=== PATIENT | female | born 1980 | race Caucasian/White ===

== ENCOUNTER 2021-11-24 22:15 | Emergency (ER) | payer OTHER ==
[~2021-11-24 22:15] MED LIST: ATENOLOL25 MG PO; BUSPIRONE HCL10 MG PO; CITALOPRAM HBR40 MG PO; DOXYCYCLINE MO100 MG PO; FLUCONAZOLE150 MG PO; GABAPENTIN800 MG PO; IBU800 MG PO; LIDOCAINE-PRILOC5 GM TOP; LORATADINE10 MG PO; METRONIDAZOLE500 MG PO; ONDANSETRON ODT4 MG PO; PROAIR HFA8.5 GM INH; TRANEXAMIC ACI650 MG PO; TRI-ESTARYLLA1 EACH PO
[2021-11-24 23:11] LABS: HEMOGLOBIN 13.2 gm/dl (12.3-15.3); RED BLOOD COUNT 4.42 M/UL (4.00-5.10); WHITE BLOOD COUNT 12.1 K/UL (4.5-11.0)
[2021-11-24 23:36] LABS: BUN/CREATININE RATIO 16 (0-10)
== END 2021-11-25 04:18 | disposition home or self-care (01) ==
LOC: ER1 22:15
PROVIDERS: Physician Assistant
DX: R55 Syncope and collapse (principal); N39.3 Stress incontinence (female) (male); E78.5 Hyperlipidemia, unspecified; Z90.49 Acquired absence of other specified parts of digestive tract
CPT/HCPCS: 70450; 71045; 80053; 81001; 82550; 82553; 84484; 84703; 85025; 93005; 96360; 99284

== ENCOUNTER → 2022-01-06 | Outpatient (CLI) | payer OTHER | LOC: CATH 09:17 | DX: I95.1 Orthostatic hypotension (principal); R42 Dizziness and giddiness ==

== ENCOUNTER → 2022-01-06 | Outpatient (CLI) | payer OTHER | LOC: HEART 5 13:06 | DX: R42 Dizziness and giddiness (principal); I95.1 Orthostatic hypotension; R55 Syncope and collapse ==